=== PATIENT | female | born 1960 | race African-American/Black ===

== ENCOUNTER 2025-08-10 13:22 | Emergency (ER) | payer MEDICARE, MEDICAID ==
[~2025-08-10] VITALS: Ht 160 cm; Wt 72.0 kg
[2025-08-10 13:34] VITALS: TEMP 37.1
[2025-08-10] MEDS ORDERED: IBUP-2028 MT (15:05)
[2025-08-10 15:45] VITALS: BP 142/87; PULSE 90; RESP 18; O2SAT 100
== END 2025-08-10 15:46 | disposition home or self-care (01) ==
LOC: ER 13:22
DX: M25.511 Pain in right shoulder (principal); E11.9 Type 2 diabetes mellitus without complications; I10 Essential (primary) hypertension; Z99.2 Dependence on renal dialysis
CPT/HCPCS: 73030; 73110; 99284